=== PATIENT | female | born 1965 | race Two or more races ===

== ENCOUNTER 2024-10-02 17:42 | Inpatient (IN) | payer MEDICARE, OTHER ==
[~2024-10-02] VITALS: Ht 144.8 cm; Wt 63.7 kg
[~2024-10-02 17:42] MED LIST: VANC750V IV
[2024-10-02 18:51] LABS: BASOPHILS % (AUTO) 0.3 % (0.0-2.0); EOSINOPHILS % (AUTO) 0.3 % (0.0-6.0); HEMATOCRIT 28 % (33-45); HEMOGLOBIN 9.3 g/dL (11.5-14.8); LYMPHOCYTES # (AUTO) 0.7 K/uL (0.8-4.8); LYMPHOCYTES % (AUTO) 9.6 % (20.0-44.0); MEAN CORPUSCULAR HEMOGLOBIN 28 PG (26.0-33.0); MEAN CORPUSCULAR HGB CONC 33 g/dl (31.0-36.0); MEAN CORPUSCULAR VOLUME 86 fL (82-100); MONOCYTES # (AUTO) 0.2 K/uL (0.1-1.30); MONOCYTES % (AUTO) 2.9 % (2.0-12.0); NEUTROPHILS # (AUTO) 6.5 K/uL (1.8-8.9); NEUTROPHILS % (AUTO) 86.9 % (43.0-81.0); PLATELET COUNT (AUTO) 178 K/uL (150-450); RED CELL DISTRIBUTION WIDTH 15.9 % (11.5-15.0); WHITE BLOOD COUNT (AUTO) 7.5 K/uL (4.3-11.0)
[2024-10-02 19:00] LABS: CALCIUM, SERUM 8.6 mg/dL (8.5-10.1); CARBON DIOXIDE 22 mmol/L (21-32); CHLORIDE 104 mmol/L (98-107); CREATININE 1.2 mg/dL (0.6-1.3); GLUCOSE 105 mg/dL (74-106); POTASSIUM 3.9 mmol/L (3.5-5.1); SODIUM SERUM 135 mmol/L (136-145); UREA NITROGEN, BLOOD 18 mg/dL (7-18)
[2024-10-02 19:02] LABS: INR 1.19 (0.91-1.10); PARTIAL THROMBOPLASTIN TIME 42.1 SEC (24.3-34.3); PROTHROMBIN TIME 12.2 SECS (9.2-11.1)
[2024-10-02] MEDS: ACETAMINOPHEN ES 500 MG TABLET PO ONE (19:05)
[2024-10-02 19:08] LABS: LACTIC ACID 1.9 mmol/L (0.4-2.0)
[2024-10-02] MEDS ORDERED: ACETAMINOPHEN ES 500 MG TABLET ONE (19:09)
[2024-10-02] MEDS: MORPHINE SULFATE INJ 2 MG/ML DISP.SYRIN IV ONE (19:10)
[2024-10-02] MEDS ORDERED: MORPHINE SULFATE INJ 2 MG/ML DISP.SYRIN ONE (19:13)
[2024-10-02 19:14] LABS: ALANINE AMINOTRANSFERASE 21 U/L (12-78); ALKALINE PHOSPHATASE 187 U/L (46-116); ASPARTATE AMINOTRANSFERASE 24 U/L (15-37); BILIRUBIN,DIRECT 0.6 mg/dL (0.0-0.2); BILIRUBIN,TOTAL 0.9 mg/dL (0.2-1.0); TOTAL PROTEIN, SERUM 8.6 g/dL (6.4-8.2)
[2024-10-02] MEDS ORDERED: BISA10SU12 RC (19:15)
[2024-10-02] MEDS ORDERED: LEVO25TA7 PO (19:15)
[2024-10-02] MEDS ORDERED: ACET650S11 RC (19:15)
[2024-10-02] MEDS ORDERED: [UNRECOGNIZED DRUG - CODE] PO (19:15)
[2024-10-02] MEDS ORDERED: OMEP20CA15 PO (19:15)
[2024-10-02] MEDS ORDERED: NA P133E RC (19:15)
[2024-10-02] MEDS: PIPERACILLIN /TAZOBACTAM 3.375 G in IV D5W 50 ML IV ONE (19:15)
[2024-10-02] MEDS ORDERED: TPN IV (19:15)
[2024-10-02] MEDS ORDERED: GLUC1KIT IM (19:15)
[2024-10-02] MEDS ORDERED: METO10TA3 PO (19:15)
[2024-10-02] MEDS ORDERED: HYDR-4303 PO (19:15)
[2024-10-02] MEDS ORDERED: APIX5TAB PO (19:15)
[2024-10-02] MEDS: VANCOMYCIN 1 GM in IV D5W 250 ML IV ONE (19:55)
[2024-10-02] MEDS ORDERED: ASPIRIN 325 MG TABLET ONE (19:56)
[2024-10-02] MEDS: ASPIRIN 325 MG TABLET PO ONE (19:58)
[2024-10-02] MEDS: IV NS 0.9% 1,000 ML BAG IV ONE ×2 (20:00→21:50)
[2024-10-02] MEDS ORDERED: MAGNESIUM HYDROXIDE 30 ML UDC PO PRN (20:30)
[2024-10-02] MEDS ORDERED: ONDANSETRON HCL/PF 4 MG/2 ML VIAL IVP PRN (20:30)
[2024-10-02] MEDS ORDERED: IV NS 0.9% 1,000 ML IV PRN (20:30)
[2024-10-02] MEDS ORDERED: MAG HYDROX/AL HYDROX/SIMETH 30 ML UDC PO PRN (20:30)
[2024-10-02] MEDS ORDERED: ACETAMINOPHEN 325 MG TABLET PO PRN (20:30)
[2024-10-02] MEDS: DILTIAZEM HCL 50 MG IV IV ONE (21:30)
[2024-10-02 21:38] VITALS: BP 92/50; TEMP 98.4; O2SAT 97
[2024-10-02] MEDS: ENOXAPARIN SODIUM 40 MG/0.4 ML DISP.SYRIN SQ SCH (23:11)
[2024-10-03] VITALS: BP 97/48; TEMP 98.8; O2SAT 98
[2024-10-03] MEDS: PIPERACILLIN /TAZOBACTAM 3.375 G in IV D5W 100 ML IV SCH (02:01)
[2024-10-03] MEDS: TRAMADOL HCL 50 MG TABLET PO PRN (03:43)
[2024-10-03 04:00] VITALS: BP 118/50; TEMP 98.1; O2SAT 99
[2024-10-03 04:02] VITALS: BP 118/50; TEMP 98.1; O2SAT 99
[2024-10-03 06:43] LABS: BASOPHILS % (AUTO) 0.3 % (0.0-2.0); EOSINOPHILS % (AUTO) 0.4 % (0.0-6.0); HEMATOCRIT 23 % (33-45); HEMOGLOBIN 7.9 g/dL (11.5-14.8); LYMPHOCYTES # (AUTO) 0.9 K/uL (0.8-4.8); LYMPHOCYTES % (AUTO) 14.7 % (20.0-44.0); MEAN CORPUSCULAR HEMOGLOBIN 29 PG (26.0-33.0); MEAN CORPUSCULAR HGB CONC 34 g/dl (31.0-36.0); MEAN CORPUSCULAR VOLUME 86 fL (82-100); MONOCYTES # (AUTO) 0.5 K/uL (0.1-1.30); MONOCYTES % (AUTO) 7.8 % (2.0-12.0); NEUTROPHILS # (AUTO) 4.7 K/uL (1.8-8.9); NEUTROPHILS % (AUTO) 76.8 % (43.0-81.0); PLATELET COUNT (AUTO) 143 K/uL (150-450); RED BLOOD CELL COUNT(AUTO) 2.73 MIL/uL (4.0-5.2); RED CELL DISTRIBUTION WIDTH 16.2 % (11.5-15.0); WHITE BLOOD COUNT (AUTO) 6.1 K/uL (4.3-11.0)
[2024-10-03 07:30] VITALS: BP 105/67; TEMP 99; O2SAT 99
[2024-10-03 07:30] LABS: THYROID STIMULATING HORMONE 1.25 uIU/mL (0.358-3.74)
[2024-10-03 07:50] LABS: CALCIUM, SERUM 8.6 mg/dL (8.5-10.1); CREATININE 1.1 mg/dL (0.6-1.3); MAGNESIUM 1.9 mg/dL (1.8-2.4); PHOSPHORUS 3.7 mg/dL (2.5-4.9); POTASSIUM 4.1 mmol/L (3.5-5.1)
[2024-10-03] MEDS: PANTOPRAZOLE 40 MG TABLET.DR PO SCH (08:25)
[2024-10-03] MEDS: ENOXAPARIN SODIUM 60 MG/0.6 ML DISP.SYRIN SQ SCH (08:32)
[2024-10-03] MEDS ORDERED: TPN/PPN PER PHARMACY IV PRN (09:30)
[2024-10-03] MEDS ORDERED: DEXTROSE 50%-WATER 50 ML DISP.SYRIN IV PRN (10:30)
[2024-10-03] MEDS: TPN BAG #1 IV SCH (11:14)
[2024-10-03 11:18] LABS: ANISOCYTOSIS 1+; LYMPHOCYTES % (MANUAL) 8 % (16-48); MONOCYTES % (MANUAL) 3 % (0-11.0); NEUTROPHILS % (MANUAL) 89 (42-76)
[2024-10-03] MEDS ORDERED: MORPHINE SULFATE INJ 2 MG/ML DISP.SYRIN IM PRN (11:30)
[2024-10-03] MEDS ORDERED: NA PHOS,M-B/NA PHOS,DI-BA 1 EA ENEMA RC PRN (12:00)
[2024-10-03] MEDS ORDERED: BISACODYL SUPP (10 MG) 10 MG/SUPP.RECT SUPP.RECT RC PRN (12:00)
[2024-10-03] MEDS: MORPHINE SULFATE INJ 2 MG/ML DISP.SYRIN IV PRN (12:04)
[2024-10-03] MEDS: BLOOD SUGAR DIAGNOSTIC 1 EACH STRIP IN SCH (13:03)
[2024-10-03] MEDS: FAT EMULSION 20% 500 ML in PREMIX 1 EA IV SCH (16:01)
[2024-10-03 16:28] VITALS: BP 95/57; TEMP 98.2; O2SAT 99
[2024-10-03] MEDS: BOOST FOOD- BERRY 237 ML BOX PO SCH (16:51)
[2024-10-03 20:00] VITALS: BP 123/62; TEMP 98.1; O2SAT 98
[2024-10-03] MEDS ORDERED: VANCOMYCIN 1 GM in IV D5W 250ml IV SCH (20:00)
[2024-10-03] MEDS: ZOSYN IVPB 3.375 G in IV D5W 50ml IV SCH (20:41)
[2024-10-03] MEDS: VANCOMYCIN HCL 1.25 GM in IV D5W 250 ML IV SCH (21:33)
[2024-10-04] VITALS: BP 132/67; TEMP 99; O2SAT 99
[2024-10-04 04:00] VITALS: BP 111/64; TEMP 97.8; O2SAT 99
[2024-10-04 06:43] LABS: BASOPHILS % (AUTO) 0.2 % (0.0-2.0); EOSINOPHILS # (AUTO) 0.1 K/uL (0.0-0.7); EOSINOPHILS % (AUTO) 1.1 % (0.0-6.0); HEMATOCRIT 22 % (33-45); HEMOGLOBIN 7.3 g/dL (11.5-14.8); LYMPHOCYTES # (AUTO) 1.6 K/uL (0.8-4.8); LYMPHOCYTES % (AUTO) 28.7 % (20.0-44.0); MEAN CORPUSCULAR HEMOGLOBIN 29 PG (26.0-33.0); MEAN CORPUSCULAR HGB CONC 33 g/dl (31.0-36.0); MEAN CORPUSCULAR VOLUME 88 fL (82-100); MONOCYTES # (AUTO) 0.6 K/uL (0.1-1.30); MONOCYTES % (AUTO) 11.8 % (2.0-12.0); NEUTROPHILS # (AUTO) 3.2 K/uL (1.8-8.9); NEUTROPHILS % (AUTO) 58.2 % (43.0-81.0); PLATELET COUNT (AUTO) 195 K/uL (150-450); RED BLOOD CELL COUNT(AUTO) 2.51 MIL/uL (4.0-5.2); RED CELL DISTRIBUTION WIDTH 16.8 % (11.5-15.0); WHITE BLOOD COUNT (AUTO) 5.5 K/uL (4.3-11.0)
[2024-10-04 07:20] LABS: CALCIUM, SERUM 8.3 mg/dL (8.5-10.1); MAGNESIUM 2.2 mg/dL (1.8-2.4); PHOSPHORUS 2.8 mg/dL (2.5-4.9); POTASSIUM 3.9 mmol/L (3.5-5.1)
[2024-10-04 07:30] VITALS: BP 135/67; TEMP 98.4; O2SAT 100
[2024-10-04] MEDS: PANTOPRAZOLE 40 MG TABLET.DR PO SCH (07:30)
[2024-10-04] MEDS: LEVOTHYROXINE SODIUM 25 MCG TABLET PO SCH (07:38)
[2024-10-04] MEDS: ENSURE CLEAR 237 ML LIQUID (MIX BERRY) PO SCH (08:00)
[2024-10-04] MEDS: INSULIN REGULAR, HUMAN 100 UNIT/ML 3 ML VIAL SQ PRN (11:34)
[2024-10-04] MEDS: PIPERACILLIN /TAZOBACTAM 3.375 G in IV D5W 100 ML IV SCH (15:43)
[2024-10-04 16:11] VITALS: BP 148/72; TEMP 98.2; O2SAT 99
[2024-10-04 16:37] LABS: OCCULT BLOOD STOOL NEGATIVE (NEGATIVE)
[2024-10-04 20:00] VITALS: BP 146/67; TEMP 99.3; O2SAT 96
[2024-10-04] MEDS: MUPIROCIN OINT 2% 22 GM TUBE NS SCH (20:41)
[2024-10-04] MEDS: TPN #2 IV SCH (21:42)
[2024-10-05 06:50] LABS: BASOPHILS % (AUTO) 0.3 % (0.0-2.0); EOSINOPHILS # (AUTO) 0.1 K/uL (0.0-0.7); HEMATOCRIT 23 % (33-45); HEMOGLOBIN 7.4 g/dL (11.5-14.8); LYMPHOCYTES # (AUTO) 1.7 K/uL (0.8-4.8); LYMPHOCYTES % (AUTO) 32.7 % (20.0-44.0); MEAN CORPUSCULAR HEMOGLOBIN 28 PG (26.0-33.0); MEAN CORPUSCULAR HGB CONC 32 g/dl (31.0-36.0); MEAN CORPUSCULAR VOLUME 85 fL (82-100); MONOCYTES # (AUTO) 0.5 K/uL (0.1-1.30); MONOCYTES % (AUTO) 10.4 % (2.0-12.0); NEUTROPHILS # (AUTO) 2.9 K/uL (1.8-8.9); NEUTROPHILS % (AUTO) 55.6 % (43.0-81.0); PLATELET COUNT (AUTO) 199 K/uL (150-450); RED BLOOD CELL COUNT(AUTO) 2.68 MIL/uL (4.0-5.2); RED CELL DISTRIBUTION WIDTH 15.9 % (11.5-15.0); WHITE BLOOD COUNT (AUTO) 5.2 K/uL (4.3-11.0)
[2024-10-05 07:16] LABS: CALCIUM, SERUM 8.3 mg/dL (8.5-10.1); MAGNESIUM 1.9 mg/dL (1.8-2.4); PHOSPHORUS 2.2 mg/dL (2.5-4.9); POTASSIUM 3.1 mmol/L (3.5-5.1)
[2024-10-05 08:21] VITALS: BP 136/68; TEMP 98.4; O2SAT 98
[2024-10-05] MEDS: Z GUARD REMEDY 4 OZ OINT TP PRN (08:32)
[2024-10-05] MEDS: POTASSIUM CL. PREMIX PERIPHER. 50 ML IV SCH (13:40)
[2024-10-05 15:50] VITALS: BP 153/70; TEMP 98.3; O2SAT 99
[2024-10-05] MEDS ORDERED: Sodium Phosphate 15 MMOL in IV NS 0.9% 245 ML IV SCH (17:00)
[2024-10-05] MEDS: Sodium Phosphate 15 MMOL in IV NS 0.9% 245 ML IV SCH (18:01)
[2024-10-05 20:00] VITALS: BP 156/77; TEMP 97.6; O2SAT 100
[2024-10-05] MEDS: VANCOMYCIN 750 MG in IV D5W 250 ML IV SCH (21:52)
[2024-10-06] MEDS: TPN #3 IV SCH (04:47)
[2024-10-06 06:29] LABS: BASOPHILS % (AUTO) 0.2 % (0.0-2.0); EOSINOPHILS # (AUTO) 0.1 K/uL (0.0-0.7); EOSINOPHILS % (AUTO) 1.3 % (0.0-6.0); HEMATOCRIT 24 % (33-45); HEMOGLOBIN 8.3 g/dL (11.5-14.8); LYMPHOCYTES # (AUTO) 1.5 K/uL (0.8-4.8); LYMPHOCYTES % (AUTO) 31.6 % (20.0-44.0); MEAN CORPUSCULAR HEMOGLOBIN 29 PG (26.0-33.0); MEAN CORPUSCULAR HGB CONC 34 g/dl (31.0-36.0); MEAN CORPUSCULAR VOLUME 85 fL (82-100); MONOCYTES # (AUTO) 0.4 K/uL (0.1-1.30); MONOCYTES % (AUTO) 8.8 % (2.0-12.0); NEUTROPHILS # (AUTO) 2.9 K/uL (1.8-8.9); NEUTROPHILS % (AUTO) 58.1 % (43.0-81.0); PLATELET COUNT (AUTO) 238 K/uL (150-450); RED BLOOD CELL COUNT(AUTO) 2.88 MIL/uL (4.0-5.2); RED CELL DISTRIBUTION WIDTH 16.1 % (11.5-15.0); WHITE BLOOD COUNT (AUTO) 4.9 K/uL (4.3-11.0)
[2024-10-06 06:53] LABS: CALCIUM, SERUM 8.4 mg/dL (8.5-10.1); MAGNESIUM 1.7 mg/dL (1.8-2.4); PHOSPHORUS 2.9 mg/dL (2.5-4.9); POTASSIUM 3.1 mmol/L (3.5-5.1)
[2024-10-06 08:00] VITALS: BP 145/78; TEMP 97.9; O2SAT 98
[2024-10-06] MEDS: Magnesium 1GM/D5W 100ML PREMIX 100 ML IV SCH (11:11)
[2024-10-06] MEDS: POTASSIUM CL. PREMIX PERIPHER. 50 ML IV SCH (13:05)
[2024-10-06 16:00] VITALS: BP 138/73; TEMP 98.1; O2SAT 99
[2024-10-06] MEDS: TPN #4 IV SCH (19:59)
[2024-10-06 20:00] VITALS: BP 159/70; TEMP 97.7; O2SAT 99
[2024-10-07 06:19] LABS: BASOPHILS % (AUTO) 0.3 % (0.0-2.0); EOSINOPHILS # (AUTO) 0.1 K/uL (0.0-0.7); EOSINOPHILS % (AUTO) 1.1 % (0.0-6.0); HEMATOCRIT 25 % (33-45); HEMOGLOBIN 8.3 g/dL (11.5-14.8); LYMPHOCYTES # (AUTO) 2.1 K/uL (0.8-4.8); LYMPHOCYTES % (AUTO) 39.2 % (20.0-44.0); MEAN CORPUSCULAR HEMOGLOBIN 28 PG (26.0-33.0); MEAN CORPUSCULAR HGB CONC 33 g/dl (31.0-36.0); MEAN CORPUSCULAR VOLUME 86 fL (82-100); MONOCYTES # (AUTO) 0.5 K/uL (0.1-1.30); NEUTROPHILS # (AUTO) 2.6 K/uL (1.8-8.9); NEUTROPHILS % (AUTO) 49.4 % (43.0-81.0); PLATELET COUNT (AUTO) 280 K/uL (150-450); RED BLOOD CELL COUNT(AUTO) 2.91 MIL/uL (4.0-5.2); WHITE BLOOD COUNT (AUTO) 5.2 K/uL (4.3-11.0)
[2024-10-07 06:41] LABS: CALCIUM, SERUM 8.8 mg/dL (8.5-10.1); MAGNESIUM 2.5 mg/dL (1.8-2.4); PHOSPHORUS 3.1 mg/dL (2.5-4.9); POTASSIUM 3.6 mmol/L (3.5-5.1)
[2024-10-07 07:30] VITALS: BP 111/67; TEMP 98.2; O2SAT 99
[2024-10-07] MEDS: HYDROCODONE/APAP 5/325MG TABLET PO PRN (11:49)
[2024-10-07 16:14] VITALS: BP 123/69; TEMP 98.2; O2SAT 98
[2024-10-07 20:00] VITALS: BP 110/69; TEMP 97.7; O2SAT 98
[2024-10-08] MEDS: TPN #5 IV SCH (00:01)
[2024-10-08 06:46] LABS: CALCIUM, SERUM 8.8 mg/dL (8.5-10.1); CREATININE 1.1 mg/dL (0.6-1.3); MAGNESIUM 2.1 mg/dL (1.8-2.4); PHOSPHORUS 3.2 mg/dL (2.5-4.9); POTASSIUM 3.2 mmol/L (3.5-5.1)
[2024-10-08 07:30] VITALS: BP 112/70; TEMP 98.2; O2SAT 98
[2024-10-08] MEDS: POTASSIUM CL. PREMIX PERIPHER. 50 ML IV SCH (12:16)
[2024-10-08 16:00] VITALS: BP 112/62; TEMP 97.7; O2SAT 99
[2024-10-08 20:00] VITALS: BP 117/60; TEMP 98.9
[2024-10-09] MEDS ORDERED: TPN #6 IV SCH (03:25)
== END 2024-10-08 20:45 | DRG 871 ==
LOC: ER 17:44 → TELE 20:13 → MED 10-04 16:07
PROVIDERS: ADMIT Nurse Practitioner Family
DX: A41.89 Other specified sepsis (principal); G93.41 Metabolic encephalopathy; I21.A1 Myocardial infarction type 2; J15.9 Unspecified bacterial pneumonia; E44.1 Mild protein-calorie malnutrition; E87.1 Hypo-osmolality and hyponatremia; I50.32 Chronic diastolic (congestive) heart failure; D62 Acute posthemorrhagic anemia; K63.2 Fistula of intestine; E86.0 Dehydration; I11.0 Hypertensive heart disease with heart failure; K21.9 Gastro-esophageal reflux disease without esophagitis; Z93.3 Colostomy status; Z87.19 Personal history of other diseases of the digestive system; Z91.012 Allergy to eggs; Z79.890 Hormone replacement therapy; Z79.899 Other long term (current) drug therapy; Z79.01 Long term (current) use of anticoagulants; D64.9 Anemia, unspecified; E88.09 Other disorders of plasma-protein metabolism, not elsewhere classified; E03.9 Hypothyroidism, unspecified; E66.9 Obesity, unspecified; I48.91 Unspecified atrial fibrillation; Y95 Nosocomial condition; B96.89 Other specified bacterial agents as the cause of diseases classified elsewhere; F01.50 Vascular dementia, unspecified severity, without behavioral disturbance, psychotic disturbance, mood disturbance, and anxiety; Z68.31 Body mass index [BMI] 31.0-31.9, adult; L89.152 Pressure ulcer of sacral region, stage 2; Z98.890 Other specified postprocedural states; B95.62 Methicillin resistant Staphylococcus aureus infection as the cause of diseases classified elsewhere
CPT/HCPCS: 36415; 71045-TC; 80048-TC; 80076-TC; 80202-TC; 82272-TC; 82962-TC; 83605-TC; 83735-TC; 84100-TC; 84443-TC; 84478-TC; 84484-TC; 85025-TC; 85730-TC; 87040-TC; 87070-TC; 87081-TC; 87205-TC; 93307-TC; 97116-TC; 97530-TC; A4216; A4223; A6253; A9563; G0378; J1650; J1815; J2270; J2543; J3370; J3371; J3475; J3480; J3490; J7030; J7050; J7060